=== PATIENT | female | born 1980 | race Caucasian/White ===

== ENCOUNTER 2016-06-09 08:58 | Emergency (ER) | payer OTHER ==
[2016-06-09 09:02] VITALS: BP 163/103; PULSE 84; RESP 16; TEMP 97
--- NOTE | 2016-06-09 09:11 | ED ---
Abdominal Pain HPI - General Chief Complaint: Abdominal Pain Stated Complaint: Abd Pain Time Seen by Provider: 06/09/16 09:02 Source: patient, RN notes reviewed Mode of arrival: ambulatory Limitations: no limitations - History of Present Illness Initial Comments: 35-year-old female presents emergency Department chief complaint abdominal pain. Patient states that she was told she had a hernia. Patient states that he has been bothering her over the last 24 hours since she's been coughing. Patient states that she noticed a lump. Patient states that she has not tried to press on it. Patient denies any nausea, vomiting, diarrhea constipation. Denies any fevers or chills. Patient states that resting does improve her symptoms. Patient has not taken anything for the pain. Patient states she's never seen a surgeon for this. Patient states she's had URI symptoms for 2 weeks states they are improving. - Related Data Previous Rx's Medication Instructions Recorded Levofloxacin [Levaquin] 750 mg PO DAILY #5 tab 05/28/15 Ibuprofen [Motrin] 600 mg PO Q8HR PRN #30 tab 06/09/16 traMADol HCl [Ultram] 50 mg PO Q6H PRN #20 tab 06/09/16 Allergies Allergy/AdvReac Type Severity Reaction Status Date / Time codeine Allergy Rash/Hives Verified 06/09/16 09:02 Review of Systems ROS Statement: Those systems with pertinent positive or pertinent negative responses have been documented in the HPI. ROS Other: All systems not noted in ROS Statement are negative. Past Medical History Past Medical History: No Reported History Additional Past Medical History / Comment(s): ddd, polycystic ovaries History of Any Multi-Drug Resistant Organisms: None Reported Past Surgical History: Tonsillectomy Past Psychological History: No Psychological Hx Reported Smoking Status: Never smoker Past Alcohol Use History: Occasional Past Drug Use History: Marijuana General Exam Limitations: no limitations General appearance: alert, in no apparent distress Head exam: Present: atraumatic, normocephalic, normal inspection ENT exam: Present: normal oropharynx Neck exam: Present: normal inspection. Absent: tenderness, meningismus, lymphadenopathy Respiratory exam: Present: normal lung sounds bilaterally. Absent: respiratory distress, wheezes, rales, rhonchi, stridor Cardiovascular Exam: Present: regular rate, normal rhythm, normal heart sounds. Absent: systolic murmur, diastolic murmur, rubs, gallop, clicks GI/Abdominal exam: Present: soft, tenderness (Minimal superior of the umbilicus) , normal bowel sounds, hernia (There is a ventral hernia noted just superior to the umbilicus this is reducible and minimally tender). Absent: distended, guarding, rebound, rigid Course Vital Signs 06/09/16 09:00 Temperature 97.0 F L Pulse Rate 84 Respiratory 16 Rate Blood Pressure 163/103 O2 Sat by Pulse 100 Oximetry Medical Decision Making - Medical Decision Making 35-year-old female presented for abdominal pain. Patient has a hernia which is reducible. Patient has no evidence of strength patient/incarceration. Patient will be discharged follow-up with Dr. Lopes on-call surgeon. Disposition Clinical Impression: Ventral hernia Disposition: HOME SELF-CARE Condition: Stable Instructions: Ventral Hernia (ED) Additional Instructions: Please return to the Emergency Department if symptoms worsen or any other concerns. Prescriptions: Ibuprofen [Motrin] 600 mg PO Q8HR PRN #30 tab PRN Reason: Pain traMADol HCl [Ultram] 50 mg PO Q6H PRN #20 tab PRN Reason: Pain Referrals: Brayan Romero DO [Primary Care Provider] - 1-2 days Jerman Lopes MD [STAFF PHYSICIAN] - 1-2 days Time of Disposition: 09:10
== END 2016-06-09 09:16 | disposition home or self-care (01) ==
LOC: EC 08:58
DX: K43.9 Ventral hernia without obstruction or gangrene (principal); R05 Cough; Z88.5 Allergy status to narcotic agent
CPT/HCPCS: 99283